=== PATIENT | female | born 1990 | race Caucasian/White ===

== ENCOUNTER 2017-01-17 22:26 | Emergency (ER) | payer OTHER ==
--- NOTE | 2017-01-17 22:51 | EDPHY ---
H & P Stated Complaint: seizures vs fainting HPI/ROS: HPI CHIEF COMPLAINT: Syncope HISTORY OF PRESENT ILLNESS: The patient very pleasant 27-year-old female she is otherwise healthy she does have significant past medical history for asthma and syncope. She states over the last 10 year she has had multiple episodes of syncope. She has had various test for this. She takes atenolol. She states that she was seated at the dinner table with her friends and had a syncopal episode. She did not fall out of her chair but she did have head strike against a table. She denies any headache neck pain chest pain or shortness of breath. She had no preceding symptoms except for tunnel vision. She denies chest pain, shortness of breath, palpitations. Denies nausea vomiting or diaphoresis. She did have a half a beer this evening. Past Medical History: Denies significant medical history asthma and previous syncopal episodes Past Surgical History: Denies recent surgery Social History: Denies daily use of drugs alcohol tobacco products. Family History: Noncontributory ROS REVIEW OF SYSTEMS: A comprehensive 10 point review of systems is otherwise negative aside from elements mentioned in the history of present illness. Exam Constitutional appears well nontoxic triage nursing summary reviewed, vital signs reviewed, awake/alert. Eyes normal conjunctivae and sclera, EOMI, PERRLA. HENT normal inspection, atraumatic, moist mucus membranes, no epistaxis, neck supple/ no meningismus, no raccoon eyes. Respiratory clear to auscultation bilaterally, normal breath sounds, no respiratory distress, no wheezing. Cardiovascular rate normal, regular rhythm, no murmur, no edema, distal pulses normal. Gastrointestinal soft, non-tender, no rebound, no guarding, normal bowel sounds, no distension, no pulsatile mass. Genitourinary no CVA tenderness. Musculoskeletal no midline vertebral tenderness, full range of motion, no calf swelling, no tenderness of extremities, no meningismus, good pulses, neurovascularly intact. Skin pink, warm, & dry, no rash, skin atraumatic. Neurologic awake, alert and oriented x 3, AAOx3, moves all 4 extremities equally, motor intact, sensory intact, CN II-XII intact, normal cerebellar, normal vision, normal speech. Psychiatric normal mood/affect. Heme/Lymph/Immune no lymphadenopathy. Differential Diagnosis: Includes but is not limited to in a particular order, vasovagal syncope, orthostatic syncope, dehydration, electrolyte disturbance, cardiac arrhythmia Medical Decision Making: Plan for this patient IV establishment with IV fluid bolus, full cardiac technologist, EKG, basic blood work. Re-evaluate. Re-evaluation: EKG interpretation by me on record in [facility] system. Impression time of EKG 2257: Sinus rhythm rate of 84. No signs of acute ischemia. No signs of acute ischemia or signs of cardiac arrhythmia. 1201AM: Patient resting comfortably no acute distress. Has no complaints at this time. Has been on the cardiac technologist without any signs of cardiac arrhythmia. EKG is unremarkable. No evidence ischemia or WPW or Brugada. Blood work reassuring. Slightly anemic. I do recommend she follows up with Cardiology outpatient basis for syncope. Holter monitor. She understands. She distally understands return emergency room she develops worsening symptoms includes syncope chest pain shortness of breath questions or concerns. Source: Patient - Personal History LMP (Females 10-55): 8-14 Days Ago Current Tetanus Diphtheria and Acellular Pertussis (TDAP): Yes - Medical/Surgical History Hx Asthma: Yes - Social History Smoking Status: Never smoked Constitutional: Initial Vital Signs Temperature (C) 37.1 C 01/17/17 22:29 Heart Rate 77 01/17/17 22:29 Respiratory Rate 20 01/17/17 22:29 Blood Pressure 107/64 01/17/17 22:29 O2 Sat (%) 97 01/17/17 22:29 O2 Delivery Mode Room Air Allergies/Adverse Reactions: No Known Allergies Allergy (Unverified 01/17/17 22:28) Home Medications: Medication Instructions Recorded Atenolol 01/17/17 Bcp 01/17/17 Sertraline HCl 01/17/17 Medical Decision Making - Data Points Laboratory Results: Laboratory Results 01/17/17 23:05 01/17/17 23:05 01/17/17 01/17/17 01/17/17 23:05 23:05 23:05 WBC 10.52 10^3/uL H 10^3/uL (3.80-9.50) RBC 3.85 10^6/uL L 10^6/uL (4.18-5.33) Hgb 11.9 g/dL L g/dL (12.6-16.3) Hct 33.4 % L % (38.0-47.0) MCV 86.8 fL fL (81.5-99.8) MCH 30.9 pg pg (27.9-34.1) MCHC 35.6 g/dL g/dL (32.4-36.7) RDW 11.9 % % (11.5-15.2) Plt Count 255 10^3/uL 10^3/uL (150-400) MPV 9.6 fL fL (8.7-11.7) Neut % (Auto) 57.6 % % (39.3-74.2) Lymph % (Auto) 31.8 % % (15.0-45.0) [place] % (Auto) 5.9 % % (4.5-13.0) Eos % (Auto) 3.5 % % (0.6-7.6) Baso % (Auto) 0.8 % % (0.3-1.7) Nucleat RBC Rel Count 0.0 % % (0.0-0.2) Absolute Neuts (auto) 6.06 10^3/uL 10^3/uL (1.70-6.50) Absolute Lymphs (auto) 3.35 10^3/uL H 10^3/uL (1.00-3.00) Absolute Monos (auto) 0.62 10^3/uL 10^3/uL (0.30-0.80) Absolute Eos (auto) 0.37 10^3/uL 10^3/uL (0.03-0.40) Absolute Basos (auto) 0.08 10^3/uL 10^3/uL (0.02-0.10) Absolute Nucleated RBC 0.00 10^3/uL 10^3/uL (0-0.01) Immature Gran % 0.4 % % (0.0-1.1) Immature Gran # 0.04 10^3/uL 10^3/uL (0.00-0.10) Sodium 140 mEq/L mEq/L (134-144) Potassium 3.8 mEq/L mEq/L (3.5-5.2) Chloride 97 mEq/L mEq/L (97-110) Carbon Dioxide 27 mEq/l mEq/l (22-31) Anion Gap 16 mEq/L mEq/L (8-16) BUN 17 mg/dL mg/dL (7-23) Creatinine 0.8 mg/dL mg/dL (0.6-1.0) Estimated GFR > 60 Glucose 105 mg/dL H mg/dL (70-100) Calcium 9.4 mg/dL mg/dL (8.5-10.4) Creatine Kinase 36 IU/L IU/L (0-156) CK-MB (CK-2) Fraction 0.43 ng/mL ng/mL (0.00-3.19) Troponin I < 0.012 ng/mL ng/mL (0.000-0.034) Beta HCG, Qual NEGATIVE Medications Given: Discontinued Medications Sodium Chloride (Ns) 1,000 mls @ 0 mls/hr IV EDNOW ONE; Wide Open PRN Reason: Protocol Stop: 01/17/17 22:55 Last Admin: 01/17/17 23:11 Dose: 1,000 mls Departure - Departure Disposition: Home, Routine, Self-Care Clinical Impression: Syncope Qualifiers: Syncope type: unspecified Qualified Code(s): R55 - Syncope and collapse Condition: Good Instructions: Syncope (ED) Additional Instructions: 1.Stay well-hydrated drink lots of fluids. 2. Return to the emergency room if you develop worsening symptoms questions or concerns. 3. Please follow up with Cardiology.
[2017-01-17] MEDS ORDERED: NS 1,000 ML IV ONE (22:54)
--- NOTE | 2017-01-17 23:00 | CPEKG ---
Heart Rate: 84 RR Interval: 714 P-R Interval: 156 QRSD Interval: 96 QT Interval: 380 QTC Interval: 450 P [place]: 70 QRS [place]: 62 T Wave [place]: 2 EKG Severity - NORMAL ECG - EKG Impression: SINUS RHYTHM Electronically Signed By: Eve Veronica 20-Jan-2017 05:41:51
[2017-01-17 23:20] LABS: % IMMATURE GRANULYOCYTES 0.4 % (0.0-1.1); ABSOLUTE IMMATURE GRANULOCYTES 0.04 10^3/uL (0.00-0.10); ADD DIFF? NO; ADD MORPH? NO; ADD SCAN? NO; ATYPICAL LYMPHOCYTE FLAG 0 (0-99); FRAGMENT RBC FLAG 0 (0-99); HEMATOCRIT 33.4 % (38.0-47.0); HEMOGLOBIN 11.9 g/dL (12.6-16.3); LEFT SHIFT FLG 0 (0-99); LIPEMIA HEMOLYSIS FLAG 90 (0-99); MEAN CELL HEMOGLOBIN 30.9 pg (27.9-34.1); MEAN CELL HEMOGLOBIN CONCENTR. 35.6 g/dL (32.4-36.7); MEAN CELL VOLUME 86.8 fL (81.5-99.8); MEAN PLATELET VOLUME 9.6 fL (8.7-11.7); PLATELET CLUMPS FLAG 0 (0-99); PLATELET COUNT 255 10^3/uL (150-400); RED BLOOD CELL COUNT 3.85 10^6/uL (4.18-5.33); RED CELL DISTRIBUTION WIDTH 11.9 % (11.5-15.2)
[2017-01-17 23:32] LABS: ANION GAP 16 mEq/L (8-16); CALCIUM 9.4 mg/dL (8.5-10.4); CARBON DIOXIDE 27 mEq/l (22-31); CHLORIDE 97 mEq/L (97-110); CREATININE 0.8 mg/dL (0.6-1.0); GLOMERULAR FILTRATION RATE > 60; GLUCOSE 105 mg/dL (70-100); POTASSIUM 3.8 mEq/L (3.5-5.2); SODIUM 140 mEq/L (134-144)
[2017-01-17 23:44] LABS: CREATINE KINASE-MB FRACTION 0.43 ng/mL (0.00-3.19); TROPONIN I < 0.012 ng/mL (0.000-0.034)
[2017-01-18 00:17] VITALS: BP 122/68; PULSE 66; RESP 16; TEMP 97.9; O2SAT 96
== END 2017-01-18 00:17 | disposition home or self-care (01) ==
DX: R55 Syncope and collapse (principal); J45.909 Unspecified asthma, uncomplicated; E86.9 Volume depletion, unspecified